=== PATIENT | male | born 1980 | race African-American/Black ===

== ENCOUNTER 2023-12-19 21:09 | Emergency (ER) | payer MEDICAID ==
[~2023-12-19] VITALS: Ht 185.4 cm; Wt 104.0 kg
[2023-12-19 21:23] VITALS: O2SAT 100
[2023-12-20] MEDS: CYCLOBENZAPRINE 10MG TABLET PO ONE (01:32)
[2023-12-20] MEDS: KETOROLAC 30MG/ML VIAL IM ONE (01:32)
[2023-12-20] MEDS ORDERED: NAPR-1176 MT (03:09)
[2023-12-20] MEDS ORDERED: CYCL10TA21 MT (03:09)
[2023-12-20 06:25] VITALS: BP 159/81; PULSE 83; RESP 20; TEMP 36.83628; O2SAT 100
== END 2023-12-20 06:29 | disposition home or self-care (01) ==
LOC: ER 21:09
DX: M47.816 Spondylosis without myelopathy or radiculopathy, lumbar region (principal); M25.551 Pain in right hip; W01.0XXA Fall on same level from slipping, tripping and stumbling without subsequent striking against object, initial encounter; Y93.89 Activity, other specified; Y92.89 Other specified places as the place of occurrence of the external cause; Y99.8 Other external cause status
CPT/HCPCS: 99284; 72131; 73502; J1885